=== PATIENT | male | born 1965 | race Caucasian/White ===

== ENCOUNTER 2020-02-28 15:00 | Emergency (ER) | payer SELFPAY ==
[~2020-02-28] VITALS: Ht 182.9 cm; Wt 88.0 kg
--- NOTE | 2020-02-28 15:07 | NUR ---
DR VELASQUEZ AT BEDSIDE TO UNA PT
[2020-02-28] MEDS ORDERED: methylPREDNISolone sod succ 125mg/2ml vial IV ONE (15:10)
[2020-02-28] MEDS ORDERED: dexamethasone sod phosphate 10mg/ml inj IV STA (15:10)
[2020-02-28] MEDS ORDERED: diphenhydrAMINE 50 mg/ml inj IV ONE (15:10)
--- NOTE | 2020-02-28 15:27 | NUR ---
MEDICATED PT PER MD ORDER, PT IS RESTING QUIETLY ON GURNEY, RESP EVEN AND UNLABORED, SKIN P/W/D, TALKING FULL SENTENCES, "JUST THE BOTTOM OF MY FEET STILL ITCH"
[2020-02-28 16:07] VITALS: BP 129/68
--- NOTE | 2020-02-28 16:07 | NUR ---
PT SAID ITCHING TO BOTTOM OF FEET HAS RESOLVED, "I FEEL BACK TO NORMAL"
[2020-02-28] MEDS ORDERED: PRED20TA PO (16:14)
[2020-02-28] MEDS ORDERED: EPIN0.3P3 IJ (16:14)
== END 2020-02-28 16:34 | disposition home or self-care (01) ==
LOC: ER 15:01
DX: T63.441A Toxic effect of venom of bees, accidental (unintentional), initial encounter (principal); R22.1 Localized swelling, mass and lump, neck; R06.02 Shortness of breath; R06.2 Wheezing; L29.8 Other pruritus; Z79.899 Other long term (current) drug therapy; Y92.89 Other specified places as the place of occurrence of the external cause
CPT/HCPCS: 96374; 96375; 99284; J1100; J1200; J2930